=== PATIENT | male | born 1965 | race Caucasian/White ===

== ENCOUNTER 2023-09-20 16:53 | Emergency (ER) | payer SELFPAY ==
--- NOTE | 2023-09-20 16:59 | ED.URI ---
HPI - URI/Sore Throat General Chief Complaint: Upper Respiratory Infection Stated Complaint: Cough/Fatigue/Congestion Source: patient and RN notes reviewed Mode of arrival: ambulatory Limitations: no limitations History of Present Illness HPI Narrative: Patient is a 58-year-old male who presents to the [facility] with complaints of cough and congestion for the past 11 days. Patient states that he has a frequent productive cough in the morning that comes nonproductive throughout the day. He reports olvera sputum when the productive cough is present. He denies chest pain or shortness of breath. He states that he had fever and chills the 1st 2 days but has not had any recently. He continues to have nasal congestion and drainage. Patient states that his son started his 1st a daycare 2 weeks ago and 2 days later came home with similar symptoms. His and grandmother had similar symptoms the following to and he developed symptoms the Wednesday before last. His respirations are unlabored. He does not appear in any acute distress. Related Data Allergies Allergy/AdvReac Type Severity Reaction Status Date / Time No Known Allergies Allergy Mild Verified 09/20/23 17:04 Review of Systems Review of Systems: CONSTITUTIONAL: Denies recent fever, chills, or sweats. EYES: Denies visual changes, redness, or discharge. ENT: Denies otalgia and sore throat. Reports nasal congestion and drainage. CARDIOVASCULAR: Denies chest pain, palpitations, or edema. RESPIRATORY: Reports cough but denies dyspnea. GASTROINTESTINAL: Denies abdominal pain, nausea, vomiting, or diarrhea. GENITOURINARY: Denies dysuria or hematuria. SKIN: Denies rash or itching. MUSCULOSKELETAL: Denies back pain or joint pain. Reports myalgia. NEUROLOGIC: Denies headache, numbness, or weakness. Pertinent positives per HPI. PMFSH Comments At the time of my signature, I reviewed and agree with the nursing past medical, surgical, social, and family history. There is no relevant family history pertinent to the patient complaint. Exam Narrative: GENERAL: This is a well-nourished, well-developed patient, in no apparent distress. HEAD: normocephalic, atraumatic. EYES: Sclera clear/white. Vision is grossly intact. EARS: External ears normal. Hearing grossly intact. NOSE: External nose normal. Nasal congestion present. THROAT: Mucous membranes moist, posterior pharynx clear. NECK: Neck supple, non-tender without lymphadenopathy, masses or thyromegaly. CARDIOVASCULAR: Regular rate and rhythm without murmurs, gallops, or rubs. RESPIRATORY: Clear to auscultation. Breath sounds equal bilaterally. No wheezes, rales, or rhonchi. GASTROINTESTINAL: Abdomen soft, non-tender, nondistended. Bowel sounds are active. No hepato-splenomegaly, or palpable masses. No guarding. SKIN: warm, intact with no suspicious lesions or rash, good texture and turgor. NEURO: awake, alert, and oriented to person, place and time. There were no obvious focal neurologic abnormalities. Course Course Level of Care: Express Care Visit Vital Signs Vital signs: Vital Signs Temperature 97.0 F L 09/20/23 17:01 Pulse Rate 82 09/20/23 17:01 Respiratory Rate 16 09/20/23 17:01 Blood Pressure 124/84 09/20/23 17:01 Pulse Oximetry 100 09/20/23 17:01 Oxygen Delivery Room Air 09/20/23 17:01 Temperature 97.0 F L 09/20/23 17:01 Pulse Rate 82 09/20/23 17:01 Respiratory Rate 16 09/20/23 17:01 Blood Pressure 124/84 09/20/23 17:01 Pulse Oximetry 100 09/20/23 17:01 Oxygen Delivery Room Air 09/20/23 17:01 Reviewed MDM - URI/Sore Throat MDM Narrative Medical decision making narrative: Go to the ER for any new or worsening symptoms. Avoid smoking/second-hand smoke. Continue to take Tylenol or Motrin for pain. Increase your Vitamin C intake. Use a humidifier or vaporizer at night. Take Medications as prescribed. Drink plenty of water. 8-10 glasses per day. Use
[2023-09-20 17:01] VITALS: BP 124/84; PULSE 82; RESP 16; TEMP 36.1; O2SAT 100
== END 2023-09-20 17:21 | disposition home or self-care (01) ==
PROVIDERS: Emergency Provider Nurse Practitioner
DX: J01.90 Acute sinusitis, unspecified (principal)
CPT/HCPCS: 99213; G0463